=== PATIENT | male | born 1990 | race Caucasian/White ===

== ENCOUNTER 2022-04-10 05:36 | Emergency (ER) | payer SELFPAY ==
[~2022-04-10] VITALS: Ht 160 cm; Wt 69.1 kg
[2022-04-10 05:59] VITALS: BP 121/81
== END 2022-04-10 10:40 | disposition left against medical advice (07) ==
LOC: ER 05:36
DX: Z53.21 Procedure and treatment not carried out due to patient leaving prior to being seen by health care provider (principal)